=== PATIENT | female | born 2000 | race Caucasian/White ===

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

== ENCOUNTER 2021-02-23 15:48 | Inpatient (IN) | payer OTHER ==
[2021-02-23 17:30] LABS: BASO % 1.1 % (0-2.0); EOS % 0.2 % (0-4.5); HEMATOCRIT 28.2 % (32.4-45.2); HEMOGLOBIN 8.9 GM/dL (10.7-15.3); LYMPH % 21.2 % (8-40); MCH 24.7 pg (25.7-33.7); MCHC 31.6 g/dl (32.0-36.0); MEAN CELL VOLUME 78.2 fl (80-96); MEAN PLT VOLUME 9.4 fl (7.5-11.1); MONO % 5.3 % (3.8-10.2); NEUT % 72.2 % (42.8-82.8); PLATELET COUNT 327 K/MM3 (134-434); RDW 17.5 % (11.6-15.6); WHITE BLOOD COUNT 8.9 K/mm3 (4.0-10.0)
[2021-02-23 17:37] LABS: INR 1.17 (0.83-1.09); PROTHROMBIN TIME (PATIENT) 14.1 SEC (9.7-13.0)
[2021-02-23 17:38] LABS: PH,URINE 5.5 (5.0-8.0); URINE APPEARANCE CLEAR; URINE BILIRUBIN NEGATIVE (NEGATIVE); URINE COLOR YELLOW; URINE GLUCOSE (UA) NEGATIVE (NEGATIVE); URINE KETONE NEGATIVE (NEGATIVE); URINE LEUK ESTERASE NEGATIVE (NEGATIVE); URINE NITRITE NEGATIVE (NEGATIVE); URINE PROTEIN NEGATIVE (NEGATIVE); URINE UROBILINOGEN 0.2 mg/dL (0.2-1.0)
[2021-02-23 17:39] LABS: HCG,QUALITATIVE URINE Positive
[2021-02-23 17:40] LABS: ACTIVATED PTT 28.1 SECONDS (25.2-36.5)
[2021-02-23] MEDS ORDERED: ACETAMINOPHEN 1000 MG/100 ML VIAL (NON FORMULARY) IVPB ONE (19:31)
[2021-02-23] MEDS ORDERED: ACETAMINOPHEN INJECTION 100 ML IVPB ONE (19:34)
[2021-02-23] MEDS ORDERED: SODIUM CHLORIDE 1,000 ML IV SCH (19:45)
[2021-02-23] MEDS ORDERED: ACETAMINOPHEN 1000 MG/100 ML VIAL (NON FORMULARY) IVPB PRN (20:20)
[2021-02-23] MEDS ORDERED: ELECTROLYTE-148 SOLN 1,000 ML IV SCH (20:30)
[2021-02-23 20:54] LABS: BASO % 1.3 % (0-2.0); EOS % 0.3 % (0-4.5); HEMATOCRIT 27.1 % (32.4-45.2); HEMOGLOBIN 8.5 GM/dL (10.7-15.3); LYMPH % 28.9 % (8-40); MCH 24.8 pg (25.7-33.7); MCHC 31.5 g/dl (32.0-36.0); MEAN CELL VOLUME 78.8 fl (80-96); MONO % 6.3 % (3.8-10.2); NEUT % 63.2 % (42.8-82.8); PLATELET COUNT 318 K/MM3 (134-434); RBC 3.44 M/mm3 (3.60-5.2); RDW 17.4 % (11.6-15.6); WHITE BLOOD COUNT 8.1 K/mm3 (4.0-10.0)
[2021-02-23] MEDS ORDERED: ETOMIDATE 20 MG/10 ML AMPUL IVPUSH ONE (21:39)
[2021-02-23] MEDS ORDERED: DEXAMETHASONE SOD PHOSPHATE 4 MG/1 ML VIAL ONE (21:39)
[2021-02-23] MEDS ORDERED: KETOROLAC TROMETHAMINE 30 MG/1 ML VIAL ONE (21:39)
[2021-02-23] MEDS ORDERED: MIDAZOLAM HCL 2 MG/2 ML SINGLE DOSE VIAL ONE (21:40)
[2021-02-23] MEDS ORDERED: GLYCOPYRROLATE 0.2 MG/1 ML VIAL ONE ×2 (21:41→22:52)
[2021-02-23] MEDS ORDERED: NEOSTIGMINE METHYLSULFATE 0.5 MG/ML - 10 ML MDV ONE (21:41)
[2021-02-23] MEDS ORDERED: ROCURONIUM BROMIDE 50 MG/5 ML SYRINGE ONE (21:45)
[2021-02-23] MEDS ORDERED: ONDANSETRON 4 MG/2 ML VIAL IVPUSH PRN (21:50)
[2021-02-23] MEDS ORDERED: LACTATED RINGERS SOLUTION 1,000 ML IV SCH (22:00)
[2021-02-23] MEDS ORDERED: BUPIVACAINE HCL 100 ML ONE (22:17)
[2021-02-23] MEDS ORDERED: ceFAZolin SODIUM 1 GM VIAL IVPB ONE (22:33)
[2021-02-24] MEDS ORDERED: IBUPROFEN 800 MG/8 ML IJ IVPB PRN (00:07)
[2021-02-24] MEDS ORDERED: IBUPROFEN 600 MG TABLET (FP) PO PRN (00:07)
[2021-02-24] MEDS ORDERED: ACETAMINOPHEN 325 MG TABLET (FP) PO PRN (00:07)
[2021-02-24 00:59] VITALS: BMI 32.3
[2021-02-24 08:46] VITALS: BP 98/58; PULSE 70; TEMP 98.1
== END 2021-02-24 11:50 | disposition home or self-care (01) | DRG 517 ==
LOC: JER 15:48 → JERBED 19:17 → J8W 02-24 00:25
PROVIDERS: ADMIT Obstetrics & Gynecology; ATTEND Obstetrics & Gynecology
PROC: 0UDB8ZZ Extraction of Endometrium, Via Natural or Artificial Opening Endoscopic (ICD-10-PCS; principal; 2021-02-24)
DX: N83.299 Other ovarian cyst, unspecified side (principal); R18.8 Other ascites; E11.9 Type 2 diabetes mellitus without complications
CPT/HCPCS: 36415; 76817-TC; 81003; 84702; 84703; 85025; 85610; 85730; 86850; 86900; 86901; 94760; 99285-25; C9803; J0131; U0003; U0005